=== PATIENT | female | born 1960 | race Caucasian/White ===

== ENCOUNTER 2021-06-10 07:30 | Observation (INO) ==
[~2021-06-10 07:30] MED LIST: Buffered Lidocaine 1% SYRIN 1 ml INTRADERM ONE; Lactated Ringers 1000 ml BAG 1,000 ML IV SCH; Lidocaine 2% PF 5 ML VIAL ONE; Midazolam 2 mg/2 ml VIAL 1 mg/ml 2 ml VIAL (2 mg) ONE; Phenylephrine IV 10 MG/ML 1 ml VIAL ONE; ceFAZolin 2 GM in NS PREMIX 2 GM/100 ML BAG IVPB ONE
[2021-06-10] MEDS ORDERED: Acetaminophen IV 1 GM/100ML 100 ML IV PRN (07:54)
[2021-06-10] MEDS ORDERED: Naloxone 0.4 mg VIAL 0.4 mg/ml 1 ml VIAL IV PRN (07:54)
[2021-06-10] MEDS ORDERED: DiMENhydriNATE IV 50 mg/ml 1 ml VIAL IV PUSH PRN (07:54)
[2021-06-10] MEDS ORDERED: fentaNYL 100 mcg/2 ml 50 MCG/ML VIAL IV PRN (07:54)
[2021-06-10] MEDS ORDERED: Ondansetron 4 mg VIAL 2 MG/ML 2 ml VIAL IV PRN ×2 (07:54→08:52)
[2021-06-10] MEDS ORDERED: Dexamethasone IV 4 MG/ML VIAL 1 ml VIAL ONE (08:08)
[2021-06-10] MEDS ORDERED: Ondansetron 4 mg VIAL 2 MG/ML 2 ml VIAL ONE (08:08)
[2021-06-10] MEDS ORDERED: Magnesium Hydroxide LIQ 30 ML UDC PO PRN (08:52)
[2021-06-10] MEDS ORDERED: Morphine 2 MG/ML SYRINGE IV PRN (08:52)
[2021-06-10] MEDS ORDERED: Ondansetron ODT 4 mg TAB 4 MG TAB PO PRN (08:52)
[2021-06-10] MEDS ORDERED: diPHENhydraMINE 25 mg TAB PO PRN (08:52)
[2021-06-10] MEDS ORDERED: diPHENhydraMINE IV 50 MG/ML 1 ml VIAL (BENADRYL) IV PRN (08:52)
[2021-06-10] MEDS ORDERED: Lactulose 30 ml UDC PO PRN (08:52)
[2021-06-10] MEDS ORDERED: ceFAZolin 1 GM ADVAN 1 GM in NS 0.9% 50 ML 50 ML IVPB SCH ×2 (09:00→16:30)
[2021-06-10] MEDS ORDERED: fentaNYL 100 mcg/2 ml 50 MCG/ML VIAL ONE ×2 (09:50→11:00)
[2021-06-10] MEDS ORDERED: Acetaminophen IV 1 GM/100ML 100 ML IV ONE (10:32)
[2021-06-10] MEDS: Lactated Ringers 1000 ml BAG 1,000 ML IV SCH ×2 (12:20→22:26)
[2021-06-10] MEDS: Vitamin THERAPEUTIC TAB PO SCH (13:50)
[2021-06-10] MEDS: Magnesium Hydroxide LIQ 30 ML UDC PO SCH ×2 (13:50→19:40)
[2021-06-10] MEDS: ceFAZolin VIAL 1 GM in NS 0.9% 50 ML 50 ML IVPB SCH (16:47)
[2021-06-10] MEDS: Mometasone/Formoter 200/5 MDI INH SCH (21:45)
[2021-06-11] MEDS: ceFAZolin VIAL 1 GM in NS 0.9% 50 ML 50 ML IVPB SCH ×2 (01:40→08:33)
[2021-06-11 07:04] LABS: Hematocrit 33 % (35-47); Hemoglobin 11.7 g/dL (12.0-16.0); Mean Platelet Volume 9.4 fL (7.4-10.4); Platelet Count 177 10^3/uL (150-450)
[2021-06-11] MEDS: Mometasone/Formoter 200/5 MDI INH SCH (07:09)
[2021-06-11 07:19] LABS: Potassium 4.2 mmol/L (3.5-5.0)
[2021-06-11 07:25] LABS: eGFR CKD-EPI 104.2 (>60)
[2021-06-11] MEDS: Vitamin THERAPEUTIC TAB PO SCH (08:12)
[2021-06-11] MEDS: Magnesium Hydroxide LIQ 30 ML UDC PO SCH (08:13)
[2021-06-11] MEDS: Lactated Ringers 1000 ml BAG 1,000 ML IV SCH (08:33)
[2021-06-11 10:57] VITALS: BP 106/51
== END 2021-06-11 14:20 | disposition home or self-care (01) ==
LOC: SSU 12:50 → INTOOBSV 12:50
PROVIDERS: ADMIT Orthopaedic Surgery Adult Reconstructive Orthopaedic Surgery; ATTEND Orthopaedic Surgery Adult Reconstructive Orthopaedic Surgery